=== PATIENT | female | born 1955 | race Caucasian/White ===

== ENCOUNTER → 2018-03-08 13:42 | Outpatient (CLI) | payer OTHER, SELFPAY ==
--- NOTE | 2018-03-08 | DI.MG.S_ITS ---
BILATERAL DIGITAL SCREENING MAMMOGRAM 3D/2D WITH CAD: 03/08/2018 CLINICAL: Routine screening. Baseline exam. No prior exams were available for comparison. There are scattered fibroglandular elements in both breasts. Current study was also evaluated with a Computer Aided Detection (CAD) system. No significant masses, calcifications, or other findings are seen in either breast. IMPRESSION: NEGATIVE There is no mammographic evidence of malignancy. A 1 year screening mammogram is recommended. This exam was interpreted at Station ID: [id number]. NOTE: For mammograms, a report in lay terms will be sent to the patient. Approximately 15% of breast malignancies will not be visualized mammographically. In the management of a palpable breast mass, a negative mammogram must not discourage biopsy of a clinically suspicious lesion. Electronically Signed By: Ron hodgson/madan:03/08/2018 16:20:12 letter sent: Normal Exam ACR BI-RADS Category 1: Negative [id number]
== END ==
PROVIDERS: Family Provider Internal Medicine; PCP Internal Medicine; Visit Provider Internal Medicine
DX: Z12.31 Encounter for screening mammogram for malignant neoplasm of breast (principal)
CPT/HCPCS: 77063; 77067

== ENCOUNTER → 2018-05-05 13:49 | Outpatient (CLI) | payer OTHER, SELFPAY ==
--- NOTE | 2018-05-05 | DI.CT.S_ITS ---
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 7 mm thick coronal and sagittal MIP reformats were then acquired. For radiation dose reduction, the following was used: automated exposure control, adjustment of mA and/or kV according to patient size. COMPARISON: [facility], [place], PET/CT WHOLE BODY EXTENDED, 12/30/2017, 14:40. [facility], [place], KIDNEY/ URETER/BLADDER, 11/23/2017, 9:09. [facility], [place], CHEST 2 VIEW, 12/09/2012, 14:37. FINDINGS: Image quality: Excellent. Lungs and pleura: No acute air space opacities. No pleural effusions or pneumothorax. Central and peripheral airways are patent and normal in caliber. The previously identified medial right lower lobe nodule measuring 15 mm AP by 13 mm transverse is unchanged. No new nodules are identified. Mediastinum: Heart size is normal. No pericardial effusion. No mediastinal adenopathy by size criteria. Thoracic aorta and central pulmonary arteries are normal in size. Esophagus is normal in caliber. No hiatal hernia. Bones and chest wall: No suspicious bony lesions. No vertebral body compression fractures. No axillary or supraclavicular adenopathy by size criteria. Thyroid gland is unremarkable. Abdomen: Visualized upper abdominal solid organs and bowel loops appear normal in the absence of contrast. IMPRESSION: 1. Unchanged appearance of 1.5 cm AP by 1.3 cm transverse the medial right lower lobe nodule. Initial visualization was on 11/23/17. It is noted to have low FDG uptake on recent PET scan. Recommend interval followup as below based on size and initial visualization. Fleischner Society criteria for SOLID lung nodule followup. Nodule size (mm)Low-risk patientHigh-risk patient<6 (single or multiple)No routine followup.Optional CT at 12 months. 6-8 (single or multiple)CT at 6-12 months, then optional CT at 18-24 mo.CT at 6-12 months, then CT at 18-24 months. >8 (single)CT, PET-CT, or biopsy at 3 months. Same as for low-risk pts. >8 (multiple)CT at 3-6 months, then optional CT at 18-24 mo.CT at 3-6 months, then CT at 18-24 months. Recommendations do not apply to lung cancer screening, patients with immunosuppression, or patients with known primary cancer. Dictated by: Lori Garcia M.D. on 05/05/2018 at 16:46 Approved by: Lori Garcia M.D. on 05/05/2018 at 16:52
== END ==
PROVIDERS: Family Provider Internal Medicine; PCP Internal Medicine; Visit Provider Internal Medicine
DX: D38.1 Neoplasm of uncertain behavior of trachea, bronchus and lung (principal)
CPT/HCPCS: 71250

== ENCOUNTER → 2018-10-15 12:36 | Outpatient (CLI) | payer OTHER, SELFPAY ==
--- NOTE | 2018-10-15 | DI.CT.S_ITS ---
PROCEDURE: CT CHEST WO CON INDICATIONS: KNOWN PULMONARY NODULE TECHNIQUE: Noncontrast 2.0-2.5 mm thick sections acquired from the pulmonary apices to the posterior costophrenic angles. 7 mm thick coronal and sagittal MIP reformats were then acquired. A low radiation dose technique was utilized. COMPARISON: [facility], CT, CT CHEST WO CON, 05/05/2018, 14:38. FINDINGS: Image quality: Diagnostic, given the low radiation dose technique. Lungs and pleura: Patient's known 15 x 13 mm oval soft tissue density nodule involving medial aspect of right lower lobe remains unchanged in size and appearance series 3 image 98. No new pulmonary nodule or mass is identified. There is no pleural effusion or pneumothorax. Central and peripheral airways are patent and normal in caliber. Mediastinum: Heart size is normal. No pericardial effusion. No mediastinal adenopathy by size criteria. Thoracic aorta and central pulmonary arteries are normal in size. Esophagus is normal in caliber. No hiatal hernia. Bones and chest wall: No suspicious bony lesions. No vertebral body compression fractures. No axillary or supraclavicular adenopathy by size criteria. Thyroid gland is within normal limits. Abdomen: Visualized upper abdomen solid organs and bowel loops appear normal in the absence of contrast. IMPRESSION: 1. Stable 15 x 13 mm medial right lower lobe nodule unchanged dating back to 11/23/[address] followup in 12 months is recommended. 2. No new pulmonary nodular masses seen. No mediastinal or hilar adenopathy. Fleischner Society criteria for SOLID lung nodule followup. Nodule size (mm)Low-risk patientHigh-risk patient<6 (single or multiple)No routine followup.Optional CT at 12 months. 6-8 (single or multiple)CT at 6-12 months, then optional CT at 18-24 mo.CT at 6-12 months, then CT at 18-24 months. >8 (single)CT at 3 months, PET-CT, or biopsy. Same as for low-risk pts. >8 (multiple)CT at 3-6 months, then optional CT at 18-24 mo.CT at 3-6 months, then CT at 18-24 months. Recommendations do not apply to lung cancer screening, patients with immunosuppression, or patients with known primary cancer. Dictated by: Marbin Harris M.D. on 10/15/2018 at 15:41 Approved by: Marbin Harris M.D. on 10/15/2018 at 15:44
== END ==
PROVIDERS: PCP Internal Medicine; Visit Provider Internal Medicine
DX: R91.1 Solitary pulmonary nodule (principal)
CPT/HCPCS: 71250

== ENCOUNTER 2018-12-10 18:09 | Emergency (ER) | payer OTHER, SELFPAY ==
[2018-12-10 18:36] VITALS: BP 132/83; PULSE 95; RESP 19; TEMP 37; O2SAT 98
--- NOTE | 2018-12-10 18:40 | DI.RAD.S_ITS ---
PROCEDURE: XR TIBIA FIBULA RT 2V INDICATIONS: Dog bite TECHNIQUE: 2 views of the tibia and fibula were acquired. COMPARISON: None. FINDINGS: Bones: No fractures or dislocations. No suspicious bony lesions. No evidence of osteomyelitis. No soft tissue gas. Soft tissues: No suspicious soft tissue calcifications or masses. IMPRESSION: Negative right tibia fibula Dictated by: Juan Pacheco M.D. on 12/10/2018 at 21:17 Approved by: Juan Pacheco M.D. on 12/10/2018 at 21:18
[2018-12-10] MEDS: TET,DIPH,PERTUSS(ACELL),VAC/PF 0.5 ML SYRINGE IM (21:17)
--- NOTE | 2018-12-10 21:29 | ED.ANIMALBIT ---
HPI - Animal Bite <Sarah Miles PA-C - Last Filed: 12/10/18 22:33> General Chief Complaint: Animal Bite Stated Complaint: DOG BITE ON LEFT CALF Time Seen by Provider: 12/10/18 20:38 Source: patient Mode of arrival: ambulatory Limitations: no limitations History of Present Illness HPI narrative: This 63-year-old female was bit earlier on the left calf by her neighbor's dog this afternoon. She states she was walking up the driveway towards her house and the dog ran up and bit her. The neighbors came and got it and she was able to walk in to the house. No other bites were sustained. They reported is up to date on vaccines, it is a very old dog and they thought it may have been frightened. She states that the calf was quite sore with cleaning it out and it is somewhat painful. She typically takes naproxen at home for pain with good results. She has not had a recent tetanus vaccine. She denies any other complaints on systems review today. Related Data Previous Rx's Medication Instructions Recorded amoxicillin-pot clavulanate 1 tab PO Q12H #14 tab 12/10/18 Allergies Allergy/AdvReac Type Severity Reaction Status Date / Time codeine Allergy Verified 12/10/18 21:46 Review of Systems <JAZZY Cerda Last Filed: 12/10/18 22:33> Review of Systems ROS Unobtainable: All systems reviewed & are unremarkable except as noted in HPI and below PFSH <JAZZY Cerda Last Filed: 12/10/18 22:33> Medical History Fibromyalgia (Chronic) Lung mass (Chronic) No pertinent family history (Chronic) Ventricular tachycardia (Chronic) Surgical History No pertinent past surgical history (Chronic) Comment: Never smoker Exam <JAZZY Cerda Last Filed: 12/10/18 22:33> Narrative Exam Narrative: GENERAL APPEARANCE: Patient sitting comfortably, in no distress. LUNGS: Clear to auscultation bilaterally. HEART: Rate and rhythm regular without murmur, normal S1 and S2, no S3 or S4. DERMATOLOGIC: Left medial calf there are 2 puncture wounds 6-7 mm deep, mildly tender, not actively bleeding. Surrounding this there is ecchymoses and hematoma, also mildly tender. No other wound or erythema MUSCULOSKELETAL: Normal range of motion at the left knee and ankle NEUROVASCULAR: Left foot is warm and pink, sensation grossly intact over the left lower extremity Initial Vital Signs Initial Vital Signs: Vital Signs Temperature 98.6 F 12/10/18 18:36 Pulse Rate 95 H 12/10/18 18:36 Respiratory Rate 19 12/10/18 18:36 Blood Pressure 132/83 12/10/18 18:36 Pulse Oximetry 98 12/10/18 18:36 <DO Yarelis Miller Last Filed: 12/10/18 22:58> Initial Vital Signs Initial Vital Signs: Vital Signs Temperature 98.6 F 12/10/18 18:36 Pulse Rate 95 H 12/10/18 18:36 Respiratory Rate 12/10/18 18:36 Blood Pressure 132/83 12/10/18 18:36 Pulse Oximetry 98 12/10/18 18:36 Course <Sarah Miles PA-C - Last Filed: 12/10/18 22:33> Orders Ordered: ED Orders 12/10/18 18:40 XR tibia fibula LT 2V Stat Discontinued Medications Hydrocodone Bitart/Acetaminophen (Vicodin Prepack) 1 bottle MISC SEEINSTR ONE Stop: 12/10/18 21:42 Last Admin: 12/10/18 22:27 Dose: 1 bottle Amoxicillin/Clavulanate Potassium (Augmentin 875-125 Mg) 1 tab PO NOW ONE Stop: 12/10/18 21:31 Last Admin: 12/10/18 21:45 Dose: 1 tab Diphtheria/Tetanus/Acell Pertussis (Adacel) 0.5 ml IM .ONCE ONE Stop: 12/10/18 18:43 Last Admin: 12/10/18 21:17 Dose: 0.5 ml Vital Signs - 8 hr 12/10/18 18:36 12/10/18 22:30 Temperature 98.6 F Pulse Rate 95 H 85 Respiratory Rate 19 15 Blood Pressure 115/78 Blood Pressure [Left Arm] 132/83 Pulse Oximetry 98 98 <DO Yarelis Miller Last Filed: 12/10/18 22:58> Orders Ordered: ED Orders 12/10/18 18:40 XR tibia fibula LT 2V Stat Discontinued Medications Hydrocodone Bitart/Acetaminophen (Vicodin Prepack) 1 bottle MISC SEEINSTR ONE Stop: 12/10/18 21:42 Last Admin: 12/10/18 22:27 Dose: 1 bottle Amoxicillin/Clavulanate Potassium (Augmentin 875-125 Mg) 1 tab PO NOW ONE Stop: 12/10/18 21:31 Last Admin: 12/10/18 21:45 Dose: 1 tab Diphtheria/Tetanus/Acell Pertussis (Adacel) 0.5 ml IM .ONCE ONE Stop: 12/10/18 18:43 Last Admin: 12/10/18 21:17 Dose: 0.5 ml Vital Signs - 8 hr 12/10/18 18:36 12/10/18 22:30 Temperature 98.6 F Pulse Rate 95 H 85 Respiratory Rate 19 15 Blood Pressure 115/78 Blood Pressure [Left Arm] 132/83 Pulse Oximetry 98 98 MDM - Animal Bite <Sarah Miles PA-C - Last Filed: 12/10/18 22:33> Imaging Data tib/fib: Radiologist's impression: 30 Sarah Miles PA-C Find Patient Imaging Adela Prasad 63 F 1955 ACTIVITY DATE EXAM STATUS AUTHOR 12/10/18 18:40 [place] [address] XRay Report Signed Patient: Adela Prasad DMR#: [id number] : 1955cct:[id number] Age/Sex: 63 / FDate of Service: 12/10/18 Loc: ED Accession Number: [id number] Procedure: XR tibia fibula LT 2V Ordering Provider: Sekou Ross D.O. PROCEDURE: XR TIBIA FIBULA RT 2V INDICATIONS: Dog bite TECHNIQUE: 2 views of the tibia and fibula were acquired. COMPARISON: None. FINDINGS: Bones: No fractures or dislocations. No suspicious bony lesions. No evidence of osteomyelitis. No soft tissue gas. Soft tissues: No suspicious soft tissue calcifications or masses. IMPRESSION: Negative right tibia fibula Dictated by: Juan Pacheco M.D. on 12/10/2018 at 21:17 Approved by: Juan Pacheco M.D. on 12/10/2018 at 21:18 Discharge Plan Departure Patient Disposition: Home Clinical Impression: Dog bite Qualifiers: Encounter type: initial encounter Qualified Code(s): W54.0XXA - Bitten by dog, initial encounter Discharge Date/Time: 12/10/18 22:26 Interventions: ED Discharge Assessment Last Done: 12/10/18 22:30 Instructions: DI for Dog Bite Activity Restrictions/Additional Instructions: Please take 2 tablets of your Aleve when you get home, and you can continue that every 12 hr to help with pain and inflammation. I have given you a few tablets of Hallock (hydrocodone/acetaminophen) and you can take 1 every 6 hr if needed in addition to this for the next day or so for acute pain. Remember that may make you sleepy and not to drive. Please monitor for any signs of acutely worsening infection such as rapidly spreading warm redness, streaking, draining pus, severe pain or fever. You should return here or see your PCP right away if any. I think that you will have pain and tenderness around this area due to the internal and external bruising and pressure on the soft tissues, but your x-ray did not show any problem today. We have updated your tetanus vaccine and started you on Augmentin to help prevent infection. It may help to keep the pressure dressing over the wound. You may wish to report this to animal Control to ensure your neighbor's dog is up-to-date on vaccines. Please see your PCP in a few days for recheck We greatly appreciate your patience with our busy emergency department today Prescriptions: New amoxicillin-pot clavulanate 875-125 mg tablet 1 tab PO Q12H Qty: 14 RF: 0 Referrals: Joseph Colorado MD [Primary Care Provider] - <Sekou Ross DO - Last Filed: 12/10/18 22:58> [facility] Attestation: I was available for consultation during this patient's emergency department encounter
[2018-12-10] MEDS: AMOXICILLIN/CLAV 875/125 MG 1 TAB PO (21:45)
[2018-12-10] MEDS: HYDROCODONE/ACET 5/325 PREPACK 1 BOTTLE MISC (22:27)
[2018-12-10 22:30] VITALS: BP 115/78; PULSE 85; RESP 15; O2SAT 98
== END 2018-12-10 22:26 | disposition home or self-care (01) ==
PROVIDERS: Emergency Provider Internal Medicine; PCP Internal Medicine
DX: S81.852A Open bite, left lower leg, initial encounter (principal); W54.0XXA Bitten by dog, initial encounter; Z23 Encounter for immunization
CPT/HCPCS: 73590; 90471; 99282; 99283; 90715

== ENCOUNTER → 2019-02-26 15:40 | Outpatient (ROUT) | payer OTHER, SELFPAY ==
[2019-02-26 15:46] LABS: Bacteria Urine None Seen
[2019-02-26 15:48] LABS: Appearance Urine UA CLEAR; Bilirubin Urine UA NEGATIVE (NEGATIVE); Color Urine UA YELLOW; Glucose Urine UA NEGATIVE (Negative); Ketones Urine UA NEGATIVE (NEGATIVE); Leukocyte Esterase Urine UA 3+ (NEGATIVE); Nitrite Urine UA NEGATIVE (Negative); Occult Blood Urine UA 3+ (Negative); Protein Urine UA NEGATIVE (Negative); Specific Gravity Urine UA <=1.005 (1.000-1.035); Urobilinogen Urine UA 0.2 E.U./dL (0.2)
[2019-02-26 16:06] LABS: Culture Indicated Urine Specimen Cultured; RBC Urine 10-30/HPF (0-5/HPF); WBC Urine 10-30/HPF (0-5/HPF)
== END ==
PROVIDERS: PCP Internal Medicine; Visit Provider Internal Medicine
DX: N39.0 Urinary tract infection, site not specified (principal)
CPT/HCPCS: 81001; 87077; 87086; 87186

== ENCOUNTER 2019-06-13 21:18 | Emergency (ER) | payer OTHER, SELFPAY ==
[2019-06-13 21:26] VITALS: BP 152/87; PULSE 105; RESP 22; TEMP 37; O2SAT 98
--- NOTE | 2019-06-13 21:28 | DI.RAD.S_ITS ---
PROCEDURE: XR FOOT RT MIN 3V INDICATIONS: lateral foot pain, twisting injury TECHNIQUE: 3 views of the foot were acquired. COMPARISON: [facility], , FOOT 3V RIGHT, 09/17/2015, 15:56. FINDINGS: Bones: No acute fractures or dislocations. There is a moderate hallux valgus deformity with moderate to severe degeneration of the 1st metatarsophalangeal joint demonstrated. There is cortical irregularity in the 2nd metatarsal consistent with an old fracture again noted. No suspicious bony lesions. Soft tissues: There is soft tissue swelling medial to the 1st metatarsal head. There is also mild periarticular soft tissue swelling at the 5th metatarsophalangeal joint. IMPRESSION: 1. No acute fracture or dislocation. 2. Moderate hallux valgus with moderate to severe degeneration of the 1st metatarsophalangeal joint. Dictated by: Anthony Montes M.D. on 06/13/2019 at 22:24 Approved by: Anthony Montes M.D. on 06/13/2019 at 22:26
--- NOTE | 2019-06-13 23:20 | ED_ITS ---
HPI - Extremity Injury (Lower) General Chief Complaint: Extremity Injury, Lower Stated Complaint: r foot pain, possible break Time Seen by Provider: 06/13/19 23:20 Source: patient Mode of arrival: ambulatory Limitations: no limitations History of Present Illness HPI Narrative: This is a 63-year-old female comes to the emergency department with complaint of pain in her right foot. Patient states that she stepped down on a rock step and it sort of day where there was a hole and she rolled her foot laterally. Patient is complaining of pain over the 5th metatarsal region. She has not appreciated any significant bruising. She also notes that there isn't a sore on the bottom of her great toe that has been there several weeks and has been improving very very slowly. She states there has been a little bit of surrounding redness that has not gone away she states that she had callus that she used a pumice stone on, she developed a crack in her toe and it has not healed. She denies any other injuries from the injury to her foot. She denies any numbness or tingling. She did try some Aleve earlier today. Related Data Previous Rx's Medication Instructions Recorded amoxicillin-pot clavulanate 1 tab PO Q12H #14 tab 12/10/18 Allergies Allergy/AdvReac Type Severity Reaction Status Date / Time codeine Allergy Verified 12/10/18 21:46 Review of Systems Review of Systems ROS Unobtainable: All systems reviewed & are unremarkable except as noted in HPI and below Constitutional Constitutional: Denies chills, Denies fever(s) and Denies weakness Musculoskeletal Musculoskeletal: Reports as per HPI, Denies abnormal gait, Reports limited range of motion, Denies numbness and Denies tingling Integumentary/Breasts Skin/Breast: Reports non-healing lesions and Reports erythema Neurologic Neurologic: Denies abnormal gait, Denies focal weakness, Denies numbness, Denies sensory deficit, Denies tingling and Denies weakness [facility] Medical History Fibromyalgia (Chronic) Lung mass (Chronic) No pertinent family history (Chronic) Ventricular tachycardia (Chronic) Surgical History No pertinent past surgical history (Chronic) Exam Narrative Exam Narrative: GENERAL: Alert and oriented x three, well-nourished, well- appearing female HEENT: Head normocephalic, atraumatic, EOMI, pupils reactive, face symmetric, moist mucous membranes NECK: Supple, full range of motion CARDIOVASCULAR: Regular rate and rhythm without murmurs, rubs or gallops. RESPIRATORY: Breath sounds equal bilaterally, no wheezes rales or rhonchi. ABDOMEN: Soft, nontender. Normoactive bowel sounds all 4 quadrants. No guarding or rebound, rigidity, no mass EXTREMITIES: Normal range of motion, no clubbing or edema. Neurovascularly intact. Patient has mild tenderness over the 5th metatarsal, no ecchymosis is noted. Patient has a over the bottom of the great toe on the left foot. It appears clean dry without any drainage. She appears to be scabbed over. There is some slight erythema along the edges but no drainage. The area is only very mildly tender to touch. Patient has 2+ dorsalis pedis with cap refill less than 2 seconds in all 5 toes. NEUROLOGICAL: Cranial nerves II through XII grossly intact. Moving all extremities SKIN: Warm, dry, no petechiae, no rashes or lesions other than noted above Initial Vital Signs Initial Vital Signs: Vital Signs Temperature 98.6 F 06/13/19 21:26 Pulse Rate 105 H 06/13/19 21:26 Respiratory Rate 22 06/13/19 21:26 Blood Pressure 152/87 H 06/13/19 21:26 Pulse Oximetry 98 06/13/19 21:26 Course Orders Ordered: ED Orders 06/13/19 21:28 XR foot RT min 3V Stat Vital Signs Vital signs: Vital Signs - 8 hr 06/13/19 21:26 Temperature 98.6 F Pulse Rate 105 H Respiratory Rate 22 Blood Pressure 152/87 H Pulse Oximetry 98 MDM - Extremity Injury (Lower) Imaging Data right foot xray: Radiologist's impression: Adela Prasad 63 F [address] [address] XRay Report Signed Patient: ShaniceAdela [facility]#: [id number] : [id number]:[id number] Age/Sex: 63 / FDate of Service: 06/13/19 Loc: ED Accession Number: [id number] Procedure: XR foot RT min 3V Ordering Provider: Laurita Tsang D.O. PROCEDURE: XR FOOT RT MIN 3V INDICATIONS: lateral foot pain, twisting injury TECHNIQUE: 3 views of the foot were acquired. COMPARISON: [facility], , FOOT 3V RIGHT, 09/17/2015, 15:56. FINDINGS: Bones: No acute fractures or dislocations. There is a moderate hallux valgus deformity with moderate to severe degeneration of the 1st metatarsophalangeal joint demonstrated. There is cortical irregularity in the 2nd metatarsal consistent with an old fracture again noted. No suspicious bony lesions. Soft tissues: There is soft tissue swelling medial to the 1st metatarsal head. There is also mild periarticular soft tissue swelling at the 5th metatarsophalangeal joint. IMPRESSION: 1. No acute fracture or dislocation. 2. Moderate hallux valgus with moderate to severe degeneration of the 1st metatarsophalangeal joint. Dictated by: Anthony Montes M.D. on 06/13/2019 at 22:24 Approved by: Anthony Montes M.D. on 06/13/2019 at 22:26 [facility] Narrative Medical decision making narrative: Imaging was reviewed with patient, she has very mild tenderness on palpation my suspicion for occult fracture is low. Patient was offered ortho shoe, she prefers to avoid crutches. We also discussed for her to keep a close eye on her toe keep it clean and dry and follow up with her primary care. He continues to stay open she may need follow- up with wound care although it does not look infected at this time we did discuss signs and symptoms to watch for and reasons to return emergently Discharge Plan Departure Patient Disposition: Home Clinical Impression: Right foot strain, Open wound of toe Discharge Date/Time: 06/14/19 00:12 Instructions: Muscle Strain Activity Restrictions/Additional Instructions: Follow-up with your primary care provider this week for recheck and possibly for referral to wound care if your toe is not continuing to heal. You may take Tylenol 1000 mg every 8 hours as needed for pain. You may use heat and/or ice to the affected area as needed. Splint Care: Keep splint clean and dry. Elevated affected body part to decrease swelling. OK to use ice pack on the affected body part. Use for 15-20 minutes each time, for 5-6x per day. If you develop worsening pain, numbness, tingling, discoloration of the affected body part, loosen the splint by loosening the BETY wrap, and either see your doctor for an urgent re-assessment, or return to the Emergency Department. Return to the Emergency Department for any new or worsening symptoms. Prescriptions: No Action amoxicillin-pot clavulanate 875-125 mg tablet 1 tab PO Q12H Qty: 14 RF: 0 Referrals: Joseph Colorado MD [Primary Care Provider] -
== END 2019-06-14 00:12 | disposition home or self-care (01) ==
PROVIDERS: Emergency Provider Emergency Medicine; PCP Internal Medicine
DX: S96.911A Strain of unspecified muscle and tendon at ankle and foot level, right foot, initial encounter (principal); S91.109A Unspecified open wound of unspecified toe(s) without damage to nail, initial encounter
CPT/HCPCS: 73630; 99282; 99283

== ENCOUNTER → 2019-08-17 13:24 | Outpatient (CLI) | payer OTHER, SELFPAY ==
[2019-08-17 13:56] LABS: Add Manual Diff / Slide Review NO; Basophils Absolute Auto 0 /uL (0-100); Basophils Percent Auto 0.7 % (0-2); Eosinophils Absolute Auto 100 /uL (0-450); Eosinophils Percent Auto 2.1 % (2-4); Hematocrit 41.1 % (36-46); Lymphocytes Absolute Auto 1500 /uL (1100-4500); Lymphocytes Percent Auto 24.4 % (25-40); Mean Corpuscular HGB Conc 34.2 % (30-36); Mean Corpuscular Hemoglobin 29.6 PG (26-34); Mean Corpuscular Volume 86.7 fL (80-100); Monocytes Absolute Auto 400 /uL (0-900); Monocytes Percent Auto 6.3 % (3-14); Neutrophils Absolute Auto 4000 /uL (1500-7000); Neutrophils Percent Auto 66.5 % (50-75); Platelet Count 264 X10^3/uL (150-400); Red Blood Cell Count 4.74 X10^6/uL (4.0-5.2); Red Cell Distribution Width 14.2 % (11.6-14.8); White Blood Cell Count 6.1 X10^3/uL (4.5-11.0)
[2019-08-17 14:32] LABS: Alanine Aminotransferase 20 IU/L (<35); Albumin 4.5 g/dL (3.5-5.0); Alkaline Phosphatase 118 U/L (38-126); Aspartate Aminotransferase 22 IU/L (14-36); BUN Creatinine Ratio 17.8 (6-22); Bilirubin Total 0.7 mg/dL (0.2-1.3); Blood Urea Nitrogen 16 mg/dL (7-17); Calcium 9.3 mg/dL (8.4-10.2); Carbon Dioxide 28 mmol/L (22-32); Chloride 104 mmol/L (98-107); Estimated Glomerular Filt Rate > 60.0 mL/min (>60); Globulin 2.3 g/dL (1.7-4.1); Glucose 93 mg/dL (80-110); HEMOLYSIS < 15 (0-50); Potassium 3.9 mmol/L (3.4-5.1); Sodium 141 mmol/L (137-145); Total Protein 6.8 g/dL (6.3-8.2)
[2019-08-17 14:47] LABS: Free T4, Direct Thyroxine 0.95 ng/dL (0.78-2.19)
[2019-08-17 15:01] LABS: Thyroid Stimulating Hormone 2.34 uIU/mL (0.47-4.68)
[2019-08-17 15:02] LABS: Cortisol Random 7.34 ug/dL
== END ==
PROVIDERS: PCP Internal Medicine; Visit Provider Internal Medicine Cardiovascular Disease
DX: R00.0 Tachycardia, unspecified (principal); I47.2 Ventricular tachycardia; R53.82 Chronic fatigue, unspecified
CPT/HCPCS: 36415; 80053; 82533; 84439; 84443; 85025

== ENCOUNTER → 2019-12-14 10:03 | Outpatient (CLI) | payer OTHER, SELFPAY ==
--- NOTE | 2019-12-14 10:09 | DI.CT.S_ITS ---
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 7 mm thick axial MIP and 5 mm coronal and sagittal reformats were then acquired. A low radiation dose technique was utilized. COMPARISON: [facility], CT, CT CHEST WO CON, 05/05/2018, 14:38. [facility], CR, CHEST 2 VIEW, 12/09/2012, 14:37. [facility], CT, KIDNEY/ URETER/BLADDER, 11/23/2017, 9:09. [facility], CT, CT CHEST WO CON, 10/15/2018, 12:47. FINDINGS: Image quality: Diagnostic, given the low radiation dose technique. Lungs and pleura: 1.6 x 1.1 cm nodule seen in the medial right lower lobe is unchanged dating back to 11/23/17 (1.6 x 1.1 cm). 1 mm nodule seen in the posterior right upper lobe on image 67/3 is unchanged since 2018. 2 mm nodule seen in the anterior left upper lobe on image 95/3 is unchanged. Mediastinum: Heart size is normal. Coronary artery calcifications are present. No pericardial effusion. No mediastinal adenopathy by size criteria. Thoracic aorta and central pulmonary arteries are normal in size. Esophagus is normal in caliber. No hiatal hernia. Bones and chest wall: No suspicious bony lesions. No vertebral body compression fractures. No axillary or supraclavicular adenopathy by size criteria. Thyroid gland negative. Abdomen: Visualized upper abdomen solid organs and bowel loops appear normal in the absence of contrast. IMPRESSION: Overall, grossly stable examination including dominant 1.6 solid nodule in the medial right lower lobe dating back to 11/23/17. Fleischner Society criteria for SOLID lung nodule followup. Nodule size (mm)Low-risk patientHigh-risk patient<6 (single or multiple)No routine followup.Optional CT at 12 months. 6-8 (single or multiple)CT at 6-12 months, then optional CT at 18-24 mo.CT at 6-12 months, then CT at 18-24 months. >8 (single)CT at 3 months, PET-CT, or biopsy. Same as for low-risk pts. >8 (multiple)CT at 3-6 months, then optional CT at 18-24 mo.CT at 3-6 months, then CT at 18-24 months. Fleischner Society criteria for SUB-SOLID lung nodule followup. Solitary pure ground-glass nodules<6 mm (ground glass or part solid)No followup needed. 6 mm or larger (ground glass)CT at 6-12 months to confirm persistence, then CT every 2 years until 5 years.6 mm or larger (part solid)CT at 3-6 months to confirm persistence, then annual CT until 5 years if unchanged and solid component remains <6 mm. Multiple sub-solid nodules<6 mmCT at 3-6 months, then CT consider at 2 & 4 years for high risk patients. [address] at 3-6 months. Subsequent management based on most suspicious lesions. Recommendations do not apply to lung cancer screening, patients with immunosuppression, or patients with known primary cancer. Dictated by: Salomon Ford M.D. on 12/14/2019 at 12:37 Approved by: Salomon Ford M.D. on 12/14/2019 at 12:44
== END ==
PROVIDERS: PCP Internal Medicine; Referring Provider Internal Medicine; Visit Provider Internal Medicine
DX: D38.1 Neoplasm of uncertain behavior of trachea, bronchus and lung (principal); R91.8 Other nonspecific abnormal finding of lung field; I25.10 Atherosclerotic heart disease of native coronary artery without angina pectoris
CPT/HCPCS: 71250

== ENCOUNTER → 2020-08-29 14:18 | Outpatient (ROUT) | payer OTHER, SELFPAY ==
[2020-08-29 14:21] LABS: Culture Indicated Urine Cult Not Indicated
== END ==
PROVIDERS: PCP Internal Medicine; Visit Provider Internal Medicine
DX: R39.9 Unspecified symptoms and signs involving the genitourinary system (principal)
CPT/HCPCS: 81001; 87086

== ENCOUNTER → 2020-11-01 12:53 | Outpatient (CLI) | payer OTHER, SELFPAY ==
[2020-11-10 04:16] LABS: 5-HIAA, UR 24HR 6.2 mg/24 hr (0.0-14.9); 5-HIAA, Urine 2.7 mg/L (Undefined)
== END ==
PROVIDERS: PCP Internal Medicine; Referring Provider Internal Medicine Cardiovascular Disease; Visit Provider Internal Medicine Cardiovascular Disease
DX: I47.2 Ventricular tachycardia (principal); R23.2 Flushing
CPT/HCPCS: 83497

== ENCOUNTER → 2021-01-24 14:30 | Outpatient (ROUT) | payer OTHER, SELFPAY ==
[2021-01-24 15:12] LABS: Add Manual Diff / Slide Review NO; Basophils Absolute Auto 0 /uL (0-100); Basophils Percent Auto 0.8 % (0-2); Eosinophils Absolute Auto 100 /uL (0-450); Eosinophils Percent Auto 1.8 % (2-4); Hematocrit 39.1 % (36-46); Hemoglobin 13.2 g/dL (12.0-16.0); Lymphocytes Absolute Auto 1300 /uL (1100-4500); Lymphocytes Percent Auto 28.5 % (25-40); Mean Corpuscular HGB Conc 33.8 % (30-36); Mean Corpuscular Hemoglobin 29.2 PG (26-34); Mean Corpuscular Volume 86.5 fL (80-100); Monocytes Absolute Auto 300 /uL (0-900); Monocytes Percent Auto 7.5 % (3-14); Neutrophils Absolute Auto 2700 /uL (1500-7000); Neutrophils Percent Auto 61.4 % (50-75); Platelet Count 253 X10^3/uL (150-400); Red Blood Cell Count 4.52 X10^6/uL (4.0-5.2); Red Cell Distribution Width 13.9 % (11.6-14.8); White Blood Cell Count 4.5 X10^3/uL (4.5-11.0)
[2021-01-24 15:19] LABS: Alanine Aminotransferase 18 IU/L (<35); Albumin 4.1 g/dL (3.5-5.0); Albumin Globulin Ratio 1.7 (1.0-2.8); Alkaline Phosphatase 105 U/L (38-126); Aspartate Aminotransferase 22 IU/L (14-36); BUN Creatinine Ratio 14.6 (6-22); Bilirubin Total 0.7 mg/dL (0.2-1.3); Blood Urea Nitrogen 12 mg/dL (7-17); C-Reactive Protein Quant < 0.5 mg/dL (<1.0); Calcium 9.4 mg/dL (8.4-10.2); Carbon Dioxide 27 mmol/L (22-32); Chloride 106 mmol/L (98-107); Cholesterol 201 mg/dL (140-199); Estimated Glomerular Filt Rate > 60.0 mL/min (>60); Globulin 2.4 g/dL (1.7-4.1); Glucose 90 mg/dL (80-110); HDL Cholesterol 82 mg/dL (40-60); HEMOLYSIS < 15 (0-50); LDL Cholesterol Calculated 104 mg/dL (<100); Potassium 4.4 mmol/L (3.4-5.1); Sodium 139 mmol/L (137-145); Total Protein 6.5 g/dL (6.3-8.2); Triglycerides 75 mg/dL (35-150)
[2021-01-24 15:27] LABS: Erythrocyte Sedimentation Rate 4 MM/HR (0-20)
[2021-01-24 15:48] LABS: TSH w/ Reflex to FT4 2.72 uIU/mL (0.47-4.68)
[2021-01-25 06:32] LABS: Thyroid Peroxidase Antibodies <9 IU/mL (0-34)
== END ==
PROVIDERS: PCP Internal Medicine; Visit Provider Internal Medicine
DX: Z00.00 Encounter for general adult medical examination without abnormal findings (principal); M35.3 Polymyalgia rheumatica; E03.9 Hypothyroidism, unspecified
CPT/HCPCS: 80053; 80061; 84443; 85025; 85651; 86140; 86376

== ENCOUNTER 2021-04-26 07:52 | Emergency (ER) | payer OTHER, SELFPAY ==
[2021-04-26] VITALS (9 sets, daily range): BP systolic 127–163; BP diastolic 70–86; PULSE 78–90; RESP 18–31; TEMP 36.8; O2SAT 96–98; BMI 28.4
--- NOTE | 2021-04-26 10:38 | ED_ITS ---
HPI - SOB/Dyspnea General Chief Complaint: Fever Stated Complaint: covid positive, not doing great Time Seen by Provider: 04/26/21 08:39 Source: patient Mode of arrival: Ambulatory History of Present Illness HPI Narrative: Patient is a 65-year-old female who has history of fibromyalgia presenting with known COVID positive. She states that she overall is feeling weak and lethargic she states that she has been using her home pulse oximeter and had 1 reading of low oxygen. However it went back up. was admitted to the hospital yesterday with COVID on oxygen. She just worried she might be D compensating. Overall appears well with O2 sat of 98% in room. Related Data Previous Rx's Medication Instructions Recorded amoxicillin 875 mg-potassium 1 tab PO Q12H #14 tab 12/10/18 clavulanate 125 mg tablet Allergies Allergy/AdvReac Type Severity Reaction Status Date / Time codeine Allergy Verified 04/26/21 08:22 Review of Systems Review of Systems Narrative: GENERAL: Denies chills, fatigue, malaise, fever, sweats, travel HEENT: Denies sinus pain, ear pain, sore throat, difficulty swallowing, neck pain RESPIRATORY: See HPI CARDIOVASCULAR: Denies chest pain, palpitations, orthopnea, edema GASTROINTESTINAL: Denies nausea, vomiting, abdominal pain, diarrhea, constipation, melena. : Denies dysuria, frequency, incontinence, hematuria, urinary retention, flank pain. MUSCULOSKELETAL: Denies weakness, joint pain, or bony pain SKIN: No rash, no erythema, no pruritus NEUROLOGIC: Denies weakness, dizziness, headache, numbness, change in speech, confusion PSYCHIATRIC: No concerning psychosocial issues. 12 point review of systems is negative except for those stated above and HPI Patient History Medical History (Updated 04/26/21 @ 11:26 by Shea Chase DO) Fibromyalgia Lung mass No pertinent family history Ventricular tachycardia Surgical History No pertinent past surgical history Social History Smoking Status: Never smoker Smoking Status: Never smoker alcohol intake frequency: 0-2 drinks per day Substance Use Type: does not use Exam Initial Vital Signs Initial Vital Signs: Vital Signs Temperature 98.3 F 04/26/21 08:10 Pulse Rate 90 04/26/21 08:10 Respiratory Rate 18 04/26/21 08:10 Blood Pressure 163/86 H 04/26/21 08:10 Pulse Oximetry 98 04/26/21 08:10 GENERAL: Alert well-appearing 65-year-old female HEENT: Head atraumatic,EOMI, pupils reactive, face symmetric, moist mucous membranes CARDIOVASCULAR: Regular rate and rhythm without murmurs, rubs or gallops. RESPIRATORY: Breath sounds equal bilaterally, no wheezes rales or rhonchi. Speaks in full sentences without difficulty ABDOMEN: Soft, nontender. Normoactive bowel sounds all 4 quadrants. No guarding or rebound. EXTREMITIES: Normal range of motion, no clubbing or edema. Neurovascularly intact NEUROLOGICAL: Alert and oriented x4.Normal gait and speech. SKIN: Warm, dry, no laceration, no petechiae, no rashes or lesions. Course Orders Ordered: ED Orders 04/26/21 10:38 XR chest 2V Stat Vital Signs Vital signs: Vital Signs - 8 hr 04/26/21 08:10 04/26/21 08:21 04/26/21 08:30 Temperature 98.3 F Pulse Rate 90 89 86 Respiratory Rate 18 20 20 Blood Pressure 163/86 H 143/77 H Pulse Oximetry 98 98 98 04/26/21 09:00 04/26/21 09:30 04/26/21 10:10 Temperature Pulse Rate 83 78 85 Respiratory Rate 20 25 H 24 Blood Pressure 135/78 127/77 Pulse Oximetry 96 96 98 04/26/21 10:30 04/26/21 11:00 04/26/21 11:30 Temperature Pulse Rate 81 80 85 Respiratory Rate 20 20 31 H Blood Pressure 128/70 Pulse Oximetry 98 98 97 MDM - SOB/Dyspnea Lab Data Labs: Urine Dip Bedside Urine Glucose Negative Bedside Urine Bilirubin - Negative Bedside Urine Ketone - Negative Urine Specific [place] 1.015 Bedside Urine Occult Blood - Negative Bedside Urine pH 6.0 Bedside Urine Protein - Negative Bedside Urine Urobilinogen - Negative Bedside Urine Nitrite - Negative Bedside Urine Leukocytes - Negative Esterase Imaging Data Chest x-ray: Radiologist's Impression: PROCEDURE: XR CHEST 2V INDICATIONS: covid TECHNIQUE: 2 views of the chest were acquired. COMPARISON: [facility], , CHEST 2 VIEW, 12/09/2012, 14:37. FINDINGS: Surgical changes and devices: None. Lungs and pleura: There are new indistinct peripheral airspace opacities in the left mid lung. The right lung appears clear. No pleural effusions or pneumothorax. Mediastinum: Mediastinal contours are normal. Heart size is normal. Bones and chest wall: No suspicious bony abnormalities. Soft tissues appear unremarkable. IMPRESSION: 1. New peripheral indistinct opacities in the left mid lung suggestive of atypical pneumonia given clinical history. Dictated by: Anthony Montes M.D. on 04/26/2021 at 11:01 MDM Narrative Medical decision making narrative: Patient has COVID overall appears well oxygen level is 98% while on the monitor in the ED for over 2 hours. Chest x-ray does show COVID pneumonia. I discussed with her monitoring oxygen at home and when to return to the ED. at this time she certainly does not have any high risk factors and does not need admission at this time. I have explained her that this could change and to come back as needed. Discharge Plan Departure Patient Disposition: Home Clinical Impression: Pneumonia due to 2019-nCoV Instructions: DI for COVID-19 (Suspected or Confirmed ) Activity Restrictions/Additional Instructions: *You have been diagnosed with COVID *What to do: Your x-ray does show that you have some slight pneumonia. Please continue to use pulse oximeter at home. Check oxygen levels a couple of times a day. If oxygen remains low below 90% or you are having increasing difficulty breathing return to emergency department. Increase fluid intake and controlled fever. There is potential for you still to decompensate and for symptoms to worsen. *Continue to take medications as directed Tylenol 1000 mg every 6 hours if needed for fever or pain Vitamin-D 2000 units daily *Follow up with your primary care provider in 2-3 days *Return to ER if you should have increasing difficulty breathing, low oxygen, inability to tolerate fluids or any new, worsening or concerning symptoms Prescriptions: No Action amoxicillin-pot clavulanate 875-125 mg tablet 1 tab PO Q12H Qty: 14 RF: 0 Referrals: Joseph Colorado MD [Primary Care Provider] -
== END 2021-04-26 11:36 | disposition home or self-care (01) ==
PROVIDERS: Emergency Provider Emergency Medicine; PCP Internal Medicine
DX: U07.1 COVID-19 (principal); J12.82 Pneumonia due to coronavirus disease 2019
CPT/HCPCS: 71046; 81003; 99282; 99283

== ENCOUNTER 2021-05-01 06:24 | Emergency (ER) | payer OTHER, SELFPAY ==
[2021-05-01 06:45] VITALS: BP 154/82; PULSE 89; RESP 21; TEMP 36.5; O2SAT 97; BMI 28.4
--- NOTE | 2021-05-01 08:06 | ED.URI ---
HPI - URI/Sore Throat General Chief Complaint: Upper Respiratory Symptoms Stated Complaint: covid positive dehydrated weakness Time Seen by Provider: 05/01/21 07:04 Source: patient Mode of arrival: Ambulatory Limitations: no limitations History of Present Illness HPI Narrative: Patient is a 65-year-old female here on 04/26/2021 for the same presenting with increased nausea and increasing weakness. She states that her was released from the hospital but then readmitted. She has coughing spells she generally feels weak she continues to have fevers and shortness of breath. She states that she has sometimes been dizzy she feels like she is dehydrated. Related Data Previous Rx's Medication Instructions Recorded amoxicillin 875 mg-potassium 1 tab PO Q12H #14 tab 12/10/18 clavulanate 125 mg tablet ondansetron 4 mg disintegrating 4 mg PO Q8H PRN #10 tab 05/01/21 tablet Allergies Allergy/AdvReac Type Severity Reaction Status Date / Time codeine Allergy Verified 04/26/21 08:22 Review of Systems Review of Systems ROS Unobtainable: All systems reviewed & are unremarkable except as noted in HPI and below Constitutional Constitutional: Reports as per HPI, Reports body ache(s), Reports chills, Reports fatigue and Reports fever(s) ENT Ears, Nose, Mouth, and Throat: Denies neck pain and Reports sore throat Cardiovascular Cardiovascular: Denies chest pain, Denies irregular heart rhythm, Reports dyspnea and Reports dyspnea on exertion Respiratory Respiratory: Reports as per HPI, Reports chest congestion, Reports cough, Reports pain with cough, Reports dyspnea and Reports dyspnea on exertion Gastrointestinal Gastrointestinal: Denies abdominal pain, Reports nausea and Denies vomiting Musculoskeletal Musculoskeletal: Denies back pain and Denies neck pain Integumentary/Breasts Skin/Breast: Denies rash Endocrine Endocrine: Reports fatigue Patient History Medical History (Updated 05/01/21 @ 10:57 by Shea Chase DO) Fibromyalgia Lung mass No pertinent family history Ventricular tachycardia Surgical History No pertinent past surgical history Social History Smoking Status: Never smoker Smoking Status: Never smoker alcohol intake frequency: 0-2 drinks per day Substance Use Type: does not use Exam Initial Vital Signs Initial Vital Signs: Vital Signs Temperature 97.7 F 05/01/21 06:45 Pulse Rate 89 05/01/21 06:45 Respiratory Rate 21 05/01/21 06:45 Blood Pressure 154/82 H 05/01/21 06:45 Pulse Oximetry 97 05/01/21 06:45 GENERAL: Alert 65-year-old female and in no acute distress. HEENT: Head atraumatic,EOMI, pupils reactive, face symmetric] CARDIOVASCULAR: Regular rate and rhythm without murmurs, rubs or gallops. RESPIRATORY: Breath sounds equal bilaterally, no wheezes rales or rhonchi. Coughing with deep breast ABDOMEN: Soft, nontender. Normoactive bowel sounds all 4 quadrants. No guarding or rebound. EXTREMITIES: Normal range of motion, no clubbing or edema. Neurovascularly intact NEUROLOGICAL: Alert and oriented x4.Normal gait and speech. SKIN: Warm, dry, no laceration, no petechiae, no rashes or lesions. Course Orders Ordered: ED Orders 05/01/21 10:56 EKG-12 Lead Stat Discontinued Medications Sodium Chloride (Normal Saline 0.9%) 1,000 mls @ 1,000 mls/hr IV CONT KRISTOPHER Last Infusion: 05/01/21 10:39 Dose: 0 mls/hr Documented by: Admin: 05/01/21 09:10 Dose: 1,000 mls/hr Documented by: DIMITRIS Ondansetron HCl (Ondansetron 4 Mg/2 Ml Inj) 4 mg IV NOW ONE Stop: 05/01/21 10:54 Last Admin: 05/01/21 10:56 Dose: 4 mg Documented by: ESPERANZA Vital Signs Vital signs: Vital Signs - 8 hr 05/01/21 06:45 05/01/21 08:30 05/01/21 09:30 Temperature 97.7 F Pulse Rate 89 85 89 Respiratory Rate 21 18 18 Blood Pressure 154/82 H 130/79 131/79 Pulse Oximetry 97 98 98 05/01/21 10:39 Temperature Pulse Rate 96 H Respiratory Rate 18 Blood Pressure 144/75 H Pulse Oximetry 99 MDM - URI/Sore Throat Lab Data Attestation: I reviewed the patient's lab results. Result diagrams: 05/01/21 09:10 05/01/21 09:10 Labs: Lab Results 05/01/21 05/01/21 05/01/21 Range/Units 09:10 09:10 09:10 WBC 4.2 L (4.5-11.0) X10^3/uL RBC 4.47 (4.0-5.2) X10^6/uL Hgb 12.9 (12.0-16.0) g/dL Hct 38.1 (36-46) % MCV 85.2 (80-100) fL MCH 28.9 (26-34) PG MCHC 33.9 (30-36) % RDW 13.6 (11.6-14.8) % Plt Count 173 (150-400) X10^3/uL Neut % (Auto) 81.5 H (50-75) % Lymph % (Auto) 11.7 L (25-40) % [place] % (Auto) 6.5 (3-14) % Eos % (Auto) 0.0 L (2-4) % Baso % (Auto) 0.3 (0-2) % Neut # (Auto) 3400 (7783-9218) /uL Lymph # (Auto) 500 L (7750-4769) /uL [place] # (Auto) 300 (0-900) /uL Eos # (Auto) 0 (0-450) /uL Baso # (Auto) 0 (0-100) /uL D-Dimer 524 H (<230) ng/mL Sodium 134 L (137-145) mmol/L Potassium 4.1 (3.4-5.1) mmol/L Chloride 100 (98-107) mmol/L Carbon Dioxide 27 (22-32) mmol/L BUN 9 (7-17) mg/dL Creatinine 0.66 (0.52-1.04) mg/dL Estimated GFR > 60.0 (>60) mL/min BUN/Creatinine Ratio 13.6 (6-22) Glucose 117 H (80-110) mg/dL Lactate (0.7-2.1) mmol/L Calcium 8.6 (8.4-10.2) mg/dL Total Bilirubin 0.8 (0.2-1.3) mg/dL AST 49 H (14-36) IU/L ALT 46 H (<35) IU/L Alkaline Phosphatase 93 (38-126) U/L Lactate Dehydrogenase (313-618) U/L Total Creatine Kinase (30-135) U/L CK-MB (CK-2) CK-MB (CK-2) Rel Index Troponin I (0.01-0.034) ng/mL Total Protein 6.7 (6.3-8.2) g/dL Albumin 3.8 (3.5-5.0) g/dL Globulin 2.9 (1.7-4.1) g/dL Albumin/Globulin Ratio 1.3 (1.0-2.8) 05/01/21 05/01/21 Range/Units 09:10 09:10 WBC (4.5-11.0) X10^3/uL RBC (4.0-5.2) X10^6/uL Hgb (12.0-16.0) g/dL Hct (36-46) % MCV (80-100) fL MCH (26-34) PG MCHC (30-36) % RDW (11.6-14.8) % Plt Count (150-400) X10^3/uL Neut % (Auto) (50-75) % Lymph % (Auto) (25-40) % [place] % (Auto) (3-14) % Eos % (Auto) (2-4) % Baso % (Auto) (0-2) % Neut # (Auto) (3885-0382) /uL Lymph # (Auto) (1603-4316) /uL [place] # (Auto) (0-900) /uL Eos # (Auto) (0-450) /uL Baso # (Auto) (0-100) /uL D-Dimer (<230) ng/mL Sodium (137-145) mmol/L Potassium (3.4-5.1) mmol/L Chloride (98-107) mmol/L Carbon Dioxide (22-32) mmol/L BUN (7-17) mg/dL Creatinine (0.52-1.04) mg/dL Estimated GFR (>60) mL/min BUN/Creatinine Ratio (6-22) Glucose (80-110) mg/dL Lactate 0.7 (0.7-2.1) mmol/L Calcium (8.4-10.2) mg/dL Total Bilirubin (0.2-1.3) mg/dL AST (14-36) IU/L ALT (<35) IU/L Alkaline Phosphatase (38-126) U/L Lactate Dehydrogenase 831 H (313-618) U/L Total Creatine Kinase 85 (30-135) U/L CK-MB (CK-2) TNP CK-MB (CK-2) Rel Index TNP Troponin I < 0.012 (0.01-0.034) ng/mL Total Protein (6.3-8.2) g/dL Albumin (3.5-5.0) g/dL Globulin (1.7-4.1) g/dL Albumin/Globulin Ratio (1.0-2.8) Imaging Data Chest x-ray: Radiologist's Impression: PROCEDURE: XR CHEST 1V INDICATIONS: flu-like symptoms TECHNIQUE: One view of the chest was acquired. COMPARISON: [facility], , XR CHEST 2V, 04/26/2021, 10:36. [facility], , CHEST 2 VIEW, 12/09/2012, 14:37. FINDINGS: Surgical changes and devices: None. Lungs and pleura: Lungs are abnormal with increased patchy alveolar infiltration left mid and lower lung. Minimal such abnormality seen on the right.. No pleural effusions or pneumothorax. Mediastinum: Mediastinal contours appear normal. Heart size is normal. Bones and chest wall: No suspicious bony lesions. Overlying soft tissues appear unremarkable. IMPRESSION: The clinical symptomatology and the imaging findings are consistent with atypical/viral pneumonia, left greater than right. Dictated by: Greg Morrison M.D. on 05/01/2021 at 8: ECG Data Interpretation: 88 MT interval 126 QRS [address] changes or T-wave inversions, MDM Narrative Medical decision making narrative: The patient does not feel well but vitals are within normal limits she is not hypoxic. She does not meet any admission criteria. She is feeling a bit nauseous. She has elevated markers including D-dimer this is thought to be likely secondary to COVID. She is feeling better after IV fluids. I have again explained to her when to return to the emergency department. Discharge Plan Departure Patient Disposition: Home Clinical Impression: Pneumonia due to Instructions: DI for COVID-19 (Suspected or Confirmed ) Activity Restrictions/Additional Instructions: *You have been diagnosed with COVID pneumonia *What to do: Please continue to quarantine. Stay hydrated. You will continue to feel ill but should start to be on the mend. At this time you do not meet admission criteria. It is still recommended that you get vaccinated and in fact strongly encouraged. Check oxygen intermittently *Continue to take medications as directed Zofran 4 mg every 8 hours if needed for nausea or vomiting--> SENT TO [facility] Tylenol 1000 mg every 6 hours if needed for pain or fever *Follow up with your primary care provider in 2-3 days *Return to ER if you should have oxygen level below 90%, inability to tolerate fluids, or any new, worsening or concerning symptoms Prescriptions: New ondansetron 4 mg tablet,disintegrating 4 mg PO Q8H PRN (Reason: nausea and vomiting) Qty: 10 RF: 0 No Action amoxicillin-pot clavulanate 875-125 mg tablet 1 tab PO Q12H Qty: 14 RF: 0 Referrals: Joseph Colorado MD [Primary Care Provider] -
--- NOTE | 2021-05-01 08:09 | DI.RAD.S_ITS ---
PROCEDURE: XR CHEST 1V INDICATIONS: flu-like symptoms TECHNIQUE: One view of the chest was acquired. COMPARISON: [facility], , XR CHEST 2V, 04/26/2021, 10:36. [facility], , CHEST 2 VIEW, 12/09/2012, 14:37. FINDINGS: Surgical changes and devices: None. Lungs and pleura: Lungs are abnormal with increased patchy alveolar infiltration left mid and lower lung. Minimal such abnormality seen on the right.. No pleural effusions or pneumothorax. Mediastinum: Mediastinal contours appear normal. Heart size is normal. Bones and chest wall: No suspicious bony lesions. Overlying soft tissues appear unremarkable. IMPRESSION: The clinical symptomatology and the imaging findings are consistent with atypical/viral pneumonia, left greater than right. Dictated by: Greg Morrison M.D. on 05/01/2021 at 8:34 Approved by: Greg Morrison M.D. on 05/01/2021 at 8:35
[2021-05-01 08:30] VITALS: BP 130/79; PULSE 85; RESP 18; O2SAT 98
[2021-05-01] MEDS: SODIUM CHLORIDE 0.9% 1,000 ML 1000 ML IV (09:10)
[2021-05-01 09:26] LABS: Add Manual Diff / Slide Review NO; Basophils Absolute Auto 0 /uL (0-100); Basophils Percent Auto 0.3 % (0-2); Eosinophils Absolute Auto 0 /uL (0-450); Hematocrit 38.1 % (36-46); Hemoglobin 12.9 g/dL (12.0-16.0); Lymphocytes Absolute Auto 500 /uL (1100-4500); Lymphocytes Percent Auto 11.7 % (25-40); Mean Corpuscular HGB Conc 33.9 % (30-36); Mean Corpuscular Hemoglobin 28.9 PG (26-34); Mean Corpuscular Volume 85.2 fL (80-100); Monocytes Absolute Auto 300 /uL (0-900); Monocytes Percent Auto 6.5 % (3-14); Neutrophils Absolute Auto 3400 /uL (1500-7000); Neutrophils Percent Auto 81.5 % (50-75); Platelet Count 173 X10^3/uL (150-400); Red Blood Cell Count 4.47 X10^6/uL (4.0-5.2); Red Cell Distribution Width 13.6 % (11.6-14.8); White Blood Cell Count 4.2 X10^3/uL (4.5-11.0)
[2021-05-01 09:30] VITALS: BP 131/79; PULSE 89; RESP 18; O2SAT 98
[2021-05-01 09:38] LABS: D Dimer 524 ng/mL (<230)
[2021-05-01 09:48] LABS: Alanine Aminotransferase 46 IU/L (<35); Albumin 3.8 g/dL (3.5-5.0); Albumin Globulin Ratio 1.3 (1.0-2.8); Alkaline Phosphatase 93 U/L (38-126); Aspartate Aminotransferase 49 IU/L (14-36); BUN Creatinine Ratio 13.6 (6-22); Bilirubin Total 0.8 mg/dL (0.2-1.3); Blood Urea Nitrogen 9 mg/dL (7-17); Calcium 8.6 mg/dL (8.4-10.2); Carbon Dioxide 27 mmol/L (22-32); Chloride 100 mmol/L (98-107); Creatine Kinase 85 U/L (30-135); Estimated Glomerular Filt Rate > 60.0 mL/min (>60); Globulin 2.9 g/dL (1.7-4.1); Glucose 117 mg/dL (80-110); HEMOLYSIS < 15 (0-50); Lactate Dehydrogenase 831 U/L (313-618); Potassium 4.1 mmol/L (3.4-5.1); Sodium 134 mmol/L (137-145); Total Protein 6.7 g/dL (6.3-8.2)
[2021-05-01 09:51] LABS: Lactate (Lactic Acid) 0.7 mmol/L (0.7-2.1)
[2021-05-01 10:00] LABS: Troponin I < 0.012 ng/mL (0.01-0.034)
[2021-05-01 10:39] VITALS: BP 144/75; PULSE 96; RESP 18; O2SAT 99
[2021-05-01] MEDS: ONDANSETRON 4 MG/2 ML INJ IV (10:56)
== END 2021-05-01 11:11 | disposition home or self-care (01) ==
PROVIDERS: Emergency Provider Emergency Medicine; PCP Internal Medicine
DX: U07.1 COVID-19 (principal); J12.82 Pneumonia due to coronavirus disease 2019
CPT/HCPCS: 36415; 71045; 80053; 82550; 83605; 83615; 84484; 85025; 85379; 93005; 96361; 96374; 99284; J2405

== ENCOUNTER 2021-05-03 16:29 | Emergency (ER) | payer OTHER, SELFPAY ==
[2021-05-03 16:38] VITALS: PULSE 103; O2SAT 92
[2021-05-03 16:39] VITALS: BP 177/84; PULSE 104; O2SAT 95
[2021-05-03 16:45] VITALS: BP 177/84; PULSE 90; RESP 18; TEMP 36.8; O2SAT 99
[2021-05-03 17:00] VITALS: BP 162/74; PULSE 106; O2SAT 96
--- NOTE | 2021-05-03 17:29 | ED_ITS ---
HPI - URI/Sore Throat General Chief Complaint: Upper Respiratory Symptoms Stated Complaint: Covid +, clammy Time Seen by Provider: 05/03/21 16:35 Source: patient and EMS Mode of arrival: EMS Limitations: no limitations History of Present Illness HPI Narrative: 65-year-old female nonsmoker with known diagnosis of COVID-19. She has been symptomatic for about 10 days now and has had multiple visits to local facilities. She presents today with a chief complaint of occasional fever and chills and some diaphoresis. She denies any headache, sore throat or trouble breathing. She does have the occasional dry and hacking cough. She denies any nausea, vomiting or diarrhea. She denies abdominal pain, profound weakness or any skin changes such as jaundice. She had spoken with her primary care office and was instructed to present to the emergency department for evaluation. Related Data Previous Rx's Medication Instructions Recorded amoxicillin 875 mg-potassium 1 tab PO Q12H #14 tab 12/10/18 clavulanate 125 mg tablet ondansetron 4 mg disintegrating 4 mg PO Q8H PRN #10 tab 05/01/21 tablet Allergies Allergy/AdvReac Type Severity Reaction Status Date / Time codeine Allergy Verified 04/26/21 08:22 Review of Systems Review of Systems Narrative: GENERAL: see HPI HEENT: Denies sinus pain, ear pain, sore throat, difficulty swallowing, dizziness. RESPIRATORY: see HPI CARDIOVASCULAR: Denies chest pain, palpitations, orthopnea, edema, GASTROINTESTINAL: see HPI : Denies dysuria, frequency, incontinence, hematuria, urinary retention. MUSCULOSKELETAL: denies weakness, joint pain, or bony pain SKIN: Denies rash, skin lesions, or other NEUROLOGIC: Denies weakness, headache, numbness, change in speech, confusion, seizures, incoordination. PSYCHIATRIC: No concerning psychosocial issues. 12 point review of systems is negative except for those stated above Patient History Medical History Fibromyalgia Lung mass No pertinent family history Ventricular tachycardia Surgical History No pertinent past surgical history Social History Smoking Status: Never smoker Smoking Status: Never smoker alcohol intake frequency: 0-2 drinks per day Substance Use Type: does not use Exam Narrative Exam Narrative: GENERAL: [ 65] year old patient appears stated age. Well- developed patient, in mild distress. anxious, without any sign of obvious respiratory distress such as tachypnea, hypoxia, use of accessory muscles HEAD: Atraumatic. Normocephalic. EYES: Pupils equal round and reactive. Extraocular motions intact. No scleral icterus. No injection or drainage. ENT: Nose without bleeding, purulent drainage. Throat without erythema, tonsillar hypertrophy or exudate. Airway patent. NECK: Trachea midline. Non tender CARDIOVASCULAR: Regular rate and rhythm without murmurs, gallops, or rubs. RESPIRATORY: Clear to auscultation. Breath sounds equal bilaterally. No wheezes, rales, or rhonchi. GASTROINTESTINAL: Abdomen soft, non-tender, nondistended. EXTREMITIES: No edema or joint tenderness. BACK: Nontender without deformity or crepitance. No flank tenderness. NEURO: AOx3. SKIN: No rash or erythema of visible areas Initial Vital Signs Initial Vital Signs: Vital Signs Pulse Rate 103 H 05/03/21 16:38 Pulse Oximetry 92 05/03/21 16:38 Course Vital Signs Vital signs: Vital Signs - 8 hr 05/03/21 16:38 05/03/21 16:39 05/03/21 16:45 Temperature 98.2 F Pulse Rate 103 H 104 H 90 Respiratory Rate 18 Blood Pressure 177/84 H 177/84 H Pulse Oximetry 92 95 99 05/03/21 17:00 05/03/21 17:31 Temperature 98.3 F Pulse Rate 106 H Respiratory Rate Blood Pressure 162/74 H Pulse Oximetry 96 MDM - URI/Sore Throat MDM Narrative Medical decision making narrative: patient with known diagnosis of COVID pneumonia has a very reassuring physical exam and stable vital signs. She has no supplemental oxygen requirements and demonstrates no signs of respiratory distress. She is quite anxious and mentions concerns about Tylenol and how much she has been taking. We discussed the dosing that she has been using most days she is taking 2000 mg or less and has most she has had 3000 mg in a day. This is within recommended dosing and incredibly unlikely to great any toxic symptoms. Furthermore she has no abdominal pain, nausea, vomiting, change in bowel habits, jaundice or significant fatigue. We did discuss the utility of labs but surely pain that they are very unlikely to change the disposition. She has been given extensive return precautions and had questions answered to her apparent satisfaction Discharge Plan Departure Patient Disposition: Home Clinical Impression: COVID-19 Instructions: DI for COVID-19 (Suspected or Confirmed ) Activity Restrictions/Additional Instructions: *You have been diagnosed with [ COVID-19] *What to do: * per recommendations from the CDC and the [facility] Department of Health * stay home except to get medical care. Restrict activities outside your home, except for getting medical care. Do not go to work, school, or public areas. Avoid using public transportation, ride sharing, or taxis. * separate yourself from other people in your home. * call ahead before visiting your doctor * Wear a facemask * Cover your coughs and sneezes * Clean your hands often * Avoid sharing household items * Clean all high-touch services every day * Monitor your symptoms and seek prompt medical attention if your illness is worsening, particularly with difficulty in breathing. You may discontinue your isolation when: 1. You have been fever-free for at least 24 hours without the use of fever reducing medication, AND 2. Your symptoms are getting better 3. At least 10 days have passed since symptoms first appeared Individuals with laboratory confirmed COVID-19 who have not had any symptoms may discontinue home isolation when at least 10 days have passed since the date of their first COVID-19 diagnostic test and have had no subsequent illness Prescriptions: No Action ondansetron 4 mg tablet,disintegrating 4 mg PO Q8H PRN (Reason: nausea and vomiting) Qty: 10 RF: 0 amoxicillin-pot clavulanate 875-125 mg tablet 1 tab PO Q12H Qty: 14 RF: 0 Referrals: Joseph Colorado MD [Primary Care Provider] -
[2021-05-03 17:31] VITALS: TEMP 36.8
== END 2021-05-03 17:26 | disposition home or self-care (01) ==
PROVIDERS: Emergency Provider Emergency Medicine; PCP Internal Medicine
DX: U07.1 COVID-19 (principal)
CPT/HCPCS: 99281

== ENCOUNTER → 2022-05-28 09:26 | Outpatient (CLI) | payer OTHER, SELFPAY ==
[2022-05-28 10:27] LABS: Hematocrit 39.1 % (36-46); Hemoglobin 13.5 g/dL (12.0-16.0); Mean Corpuscular HGB Conc 34.5 % (30-36); Mean Corpuscular Hemoglobin 29.6 PG (26-34); Mean Corpuscular Volume 85.7 fL (80-100); Platelet Count 240 X10^3/uL (150-400); Red Blood Cell Count 4.57 X10^6/uL (4.0-5.2); Red Cell Distribution Width 13.8 % (11.6-14.8); White Blood Cell Count 4.8 X10^3/uL (4.5-11.0)
[2022-05-28 10:45] LABS: Alanine Aminotransferase 15 IU/L (<35); Albumin 4.1 g/dL (3.5-5.0); Albumin Globulin Ratio 1.8 (1.0-2.8); Alkaline Phosphatase 89 U/L (38-126); Aspartate Aminotransferase 20 IU/L (14-36); Bilirubin Total 0.9 mg/dL (0.2-1.3); Blood Urea Nitrogen 17 mg/dL (7-17); Calcium 8.7 mg/dL (8.4-10.2); Carbon Dioxide 28 mmol/L (22-32); Chloride 105 mmol/L (98-107); Cholesterol 220 mg/dL (140-199); Estimated Glomerular Filt Rate > 60 mL/min (>60); Globulin 2.3 g/dL (1.7-4.1); Glucose 91 mg/dL (80-110); HDL Cholesterol 74 mg/dL (40-60); HEMOLYSIS < 15 (0-50); LDL Cholesterol Calculated 129 mg/dL (<100); Potassium 4.5 mmol/L (3.4-5.1); Sodium 138 mmol/L (137-145); Total Protein 6.4 g/dL (6.3-8.2); Triglycerides 86 mg/dL (35-150)
[2022-05-28 11:13] LABS: TSH w/ Reflex to FT4 2.36 uIU/mL (0.47-4.68)
== END ==
PROVIDERS: PCP Internal Medicine; Referring Provider Internal Medicine; Visit Provider Internal Medicine
DX: E78.2 Mixed hyperlipidemia (principal); I47.2 Ventricular tachycardia
CPT/HCPCS: 36415; 80053; 80061; 84443; 85027

== ENCOUNTER → 2022-08-11 14:57 | Outpatient (CLI) | payer OTHER, SELFPAY ==
--- NOTE | 2022-08-11 15:00 | DI.RAD.S_ITS ---
PROCEDURE: XR CHEST 2V INDICATIONS: dyspnea, lung nodule TECHNIQUE: 2 views of the chest were acquired. COMPARISON: [facility], CR, XR CHEST 1V, 05/01/2021, 8:13. FINDINGS: Surgical changes and devices: None. Lungs and pleura: Lungs are clear. No pleural effusions or pneumothorax. Mediastinum: Mediastinal contours are normal. Heart size is normal. Bones and chest wall: No suspicious bony abnormalities. Soft tissues appear unremarkable. IMPRESSION: No acute cardiopulmonary pathology. Patient's known 1.6 cm medial right lower lobe lung nodule is not definitely seen on this CT study. Consider repeat CT for further evaluation if indicated. Dictated by: Marbin Harris M.D. on 08/11/2022 at 16:07 Approved by: Marbin Harris M.D. on 08/11/2022 at 16:08
== END ==
PROVIDERS: PCP Internal Medicine; Referring Provider Internal Medicine; Visit Provider Internal Medicine
DX: R06.00 Dyspnea, unspecified (principal); R91.1 Solitary pulmonary nodule; Z86.16 Personal history of COVID-19
CPT/HCPCS: 71046

== ENCOUNTER → 2022-09-02 10:44 | Outpatient (CLI) | payer OTHER, SELFPAY ==
[2022-09-02 11:26] LABS: COVID19 -Nasal RAPID Negative (Negative)
== END ==
PROVIDERS: PCP Internal Medicine; Referring Provider Internal Medicine; Visit Provider Internal Medicine
DX: Z20.822 Contact with and (suspected) exposure to COVID-19 (principal)
CPT/HCPCS: 87635; C9803

== ENCOUNTER → 2022-09-03 08:18 | Outpatient (CLI) | payer OTHER, SELFPAY ==
--- NOTE | 2022-09-10 10:35 | PM.PFT.1 ---
Pulmonary Function Test Referral & Results Date Patient Seen: 10/03/22 Requesting provider: Joseph Colorado Results: The spirometry demonstrates an FVC of 3.36 L which is 85% of predicted. The FEV1 was measured at 2.62 L which is 87% of predicted. The FEV1/FVC ratio was 78 which is 101% of predicted. Following the administration of bronchodilator there was 34% improvement in FEF 25-75%. Lung volumes show an SVC of 3.50 L which is 98% of predicted. The diffusing capacity was measured at 20.0 which is 61% of predicted. No hemoglobin value was provided, so no correction for potential anemia could be made, if appropriate. The maximum voluntary ventilation was normal Interpretation: This study demonstrates probably normal spirometry. There is a minimal reduction FEV1 but FEV1/FVC ratio is preserved however this might indicate some minor degree of obstructive lung disease. There is also some minimal evidence of benefit following bronchodilator in small airway flow based on improvement in the FEF 25-75% as above. However shape of flow volume loop does not support the presence of obstructive lung disease. There is a mild to moderate reduction in diffusing capacity suggesting disease at the capillary alveolar level Clinical correlation suggested
== END ==
PROVIDERS: PCP Internal Medicine; Referring Provider Internal Medicine; Visit Provider Internal Medicine
DX: R06.00 Dyspnea, unspecified (principal); Z86.16 Personal history of COVID-19; J98.8 Other specified respiratory disorders
CPT/HCPCS: 94060; 94726; 94729

== ENCOUNTER → 2022-12-08 09:51 | Outpatient (CLI) | payer OTHER, SELFPAY ==
--- NOTE | 2022-12-08 09:51 | DI.MG.S_ITS ---
BILATERAL DIGITAL SCREENING MAMMOGRAM 3D/2D WITH CAD: 12/08/2022 CLINICAL: Routine screening. Comparison is made to exam dated: 03/08/2018 mammogram - [facility]. There are scattered areas of fibroglandular density in both breasts (category b / 25%-50% glandular tissue). Current study was also evaluated with a Computer Aided Detection (CAD) system. There is a possible focal asymmetry in the left breast at 12 o'clock posterior depth. This is more prominent. No other significant masses, calcifications, or other findings are seen in either breast. IMPRESSION: INCOMPLETE: NEEDS ADDITIONAL IMAGING EVALUATION The possible focal asymmetry in the left breast is indeterminate. Additional views with possible ultrasound are recommended. Based on the Tyrer Cuzick model (a risk assessment model) the patient's lifetime risk is 6.0% and her 10 year risk is 2.9%. According to the ACR, ACS, and NCCN guidelines, an annual breast MRI exam along with mammogram is recommended if the patient's lifetime risk is 20% or greater. This exam was interpreted at Station ID: [id number]. NOTE: For mammograms, a report in lay terms will be sent to the patient. Approximately 15% of breast malignancies will not be visualized mammographically. In the management of a palpable breast mass, a negative mammogram must not discourage biopsy of a clinically suspicious lesion. Electronically Signed By: Adiel gomes/madan:12/08/2022 14:35:46 letter sent: Additional Imaging Needed ACR BI-RADS Category 0: Incomplete 3340F
== END ==
PROVIDERS: PCP Internal Medicine; Referring Provider Internal Medicine; Visit Provider Internal Medicine
DX: Z12.31 Encounter for screening mammogram for malignant neoplasm of breast (principal)
CPT/HCPCS: 77063; 77067

== ENCOUNTER 2022-12-11 08:30 | Outpatient (RCR) | payer OTHER, SELFPAY | END 2022-12-11 10:30 | LOC: PUL 08:30 | PROVIDERS: PCP Internal Medicine; Referring Provider Internal Medicine; Visit Provider Internal Medicine | DX: R06.00 Dyspnea, unspecified (principal); Z86.16 Personal history of COVID-19 | CPT/HCPCS: 94625; 94626 ==

== ENCOUNTER → 2022-12-31 09:55 | Outpatient (CLI) | payer OTHER, SELFPAY ==
--- NOTE | 2022-12-31 | DI.MG.S_ITS ---
UNILATERAL LEFT DIGITAL DIAGNOSTIC MAMMOGRAM 3D/2D WITH ADDITIONAL VIEWS: 12/31/2022 CLINICAL: Additional evaluation requested from prior study. Comparison is made to exams dated: 12/08/2022 mammogram and 03/08/2018 mammogram - [facility]. There are scattered areas of fibroglandular density in the left breast (category b / 25%-50% glandular tissue). There is a possible focal asymmetry in the left breast at 12 o'clock posterior depth. This is less prominent. No other significant masses or calcifications are seen in the breast. IMPRESSION: INCOMPLETE: NEEDS ADDITIONAL IMAGING EVALUATION The possible focal asymmetry in the left breast is indeterminate. An ultrasound is recommended. Based on the Tyrer Cuzick model (a risk assessment model) the patient's lifetime risk is 6.0% and her 10 year risk is 2.9%. According to the ACR, ACS, and NCCN guidelines, an annual breast MRI exam along with mammogram is recommended if the patient's lifetime risk is 20% or greater. This exam was interpreted at Station ID: [id number]. NOTE: For mammograms, a report in lay terms will be sent to the patient. Approximately 15% of breast malignancies will not be visualized mammographically. In the management of a palpable breast mass, a negative mammogram must not discourage biopsy of a clinically suspicious lesion. Electronically Signed By: Albert Palomino M.D. lc/:12/31/2022 11:25:01 ACR BI-RADS Category 0: Incomplete 3340F
--- NOTE | 2022-12-31 | DI.US.S_ITS ---
PROCEDURE: US BREAST LT LIMITED COMPARISON: None. INDICATIONS: ABNORMAL MAMMOGRAM FINDINGS: IMPRESSION: Dictated by: Albert Palomino M.D. on 12/31/2022 at 11:25 Approved by: Albert Palomino M.D. on 12/31/2022 at 11:25
--- NOTE | 2022-12-31 11:18 | DI.US.S_ITS ---
Patient Name: RUFINA MARMOLEJO date: 1955 Sex: F Attending Physician: Jenny Indications: Date: 01/02/2023 10:44 At the request of: SULTANA ALCANTARA Procedure: US breast LT limited LIMITED ULTRASOUND OF LEFT BREAST: 12/31/2022 CLINICAL: Patient returns today to evaluate a focal asymmetry in the left breast. Comparison is made to exams dated: 12/31/2022 mammogram, 12/08/2022 mammogram, and 03/08/2018 mammogram - [facility]. Real-time ultrasound of the left breast was performed. Acuña scale images of the real-time examination were reviewed. No significant abnormalities were seen sonographically in the left breast. IMPRESSION: NEGATIVE There is no sonographic evidence of malignancy. There are no abnormalities seen in the left breast to correspond with the mammography finding at 12 o'clock which likely represent normal fibroglandular tissue. 10:00 and 11:00 were also scanned and no sonographic findings were visualized. Return to annual mammogram screening schedule is recommended. This exam was interpreted at Station ID: [id number]. Electronically Signed By: Albert Palomino M.D. lc/:01/02/2023 10:44:44 letter sent: Normal Exam Ultrasound BI-RADS: 1 Negative
== END ==
PROVIDERS: PCP Internal Medicine; Referring Provider Nurse Practitioner Family; Visit Provider Nurse Practitioner Family
DX: R92.8 Other abnormal and inconclusive findings on diagnostic imaging of breast (principal)
CPT/HCPCS: 76642; 77065; G0279

== ENCOUNTER → 2023-01-09 14:58 | Outpatient (CLI) | payer OTHER, SELFPAY ==
[2023-01-09 15:22] LABS: Hematocrit 40.4 % (36-46); Hemoglobin 13.8 g/dL (12.0-16.0); Mean Corpuscular HGB Conc 34.3 % (30-36); Mean Corpuscular Hemoglobin 29.4 PG (26-34); Mean Corpuscular Volume 85.6 fL (80-100); Platelet Count 276 X10^3/uL (150-400); Red Blood Cell Count 4.71 X10^6/uL (4.0-5.2); Red Cell Distribution Width 14.4 % (11.6-14.8); White Blood Cell Count 7.1 X10^3/uL (4.5-11.0)
[2023-01-09 16:15] LABS: BUN Creatinine Ratio 20.5 (6-22); Blood Urea Nitrogen 18 mg/dL (7-17); Calcium 8.8 mg/dL (8.4-10.2); Carbon Dioxide 27 mmol/L (22-32); Chloride 104 mmol/L (98-107); Cholesterol 244 mg/dL (140-199); Estimated Glomerular Filt Rate > 60 mL/min (>60); Glucose 99 mg/dL (80-110); HDL Cholesterol 95 mg/dL (40-60); HEMOLYSIS < 15 (0-50); LDL Cholesterol Calculated 131 mg/dL (<100); Potassium 3.8 mmol/L (3.4-5.1); Sodium 140 mmol/L (137-145); Triglycerides 90 mg/dL (35-150)
== END ==
PROVIDERS: PCP Internal Medicine; Referring Provider Internal Medicine; Visit Provider Internal Medicine
DX: E78.2 Mixed hyperlipidemia (principal); U09.9 Post COVID-19 condition, unspecified
CPT/HCPCS: 36415; 80048; 80061; 85027

== ENCOUNTER → 2023-01-17 10:51 | Outpatient (CLI) | payer OTHER, SELFPAY ==
--- NOTE | 2023-02-10 07:48 | PM.PFT.1 ---
Pulmonary Function Test Referral & Results Date Patient Seen: 01/17/23 Results: The spirometry demonstrates an FVC of 3.39 L which is 87% of predicted. The FEV1 was measured at 2.66 L which is 89% of predicted. The FEV1/FVC ratio was 78 which is 101% of predicted. Following the administration of bronchodilator there was a 30% improvement in FEF 25-75%. Lung volumes show an SVC of 3.46 L which is 97% of predicted. The diffusing capacity was measured at 21.53 which is 67% of predicted. Interpretation: This study demonstrates probably normal spirometry. There is some limited evidence of benefit in small airway flow after bronchodilator administration as above based on improvement in FEF 25-75% There is a moderate reduction diffusing capacity suggesting disease at the capillary alveolar level Clinical correlation suggested
== END ==
PROVIDERS: PCP Internal Medicine; Referring Provider Internal Medicine; Visit Provider Internal Medicine
DX: J98.8 Other specified respiratory disorders (principal); Z86.16 Personal history of COVID-19
CPT/HCPCS: 94060; 94726; 94729

== ENCOUNTER → 2023-05-12 10:15 | Outpatient (CLI) | payer OTHER, SELFPAY ==
--- NOTE | 2023-05-12 10:16 | DI.US.S_ITS ---
PROCEDURE: US PELVIC COMPLETE INDICATIONS: Pelvic pain with intercourse TECHNIQUE: Real-time scanning was performed of the pelvic organs, with image documentation. Additional endovaginal scanning was necessary due to incomplete visualization of the adnexal and endometrial structures by transabdominal scanning. COMPARISON: None. FINDINGS: Uterus: Uterus is anteverted and normal in size at 6.0 x 3.3 x 5.5 cm. The myometrium is homogeneous. The endometrium measures 5 mm combined thickness. Ovaries: Not visualized due to overlying bowel gas. Other: No pathologic free abdominal or pelvic fluid. IMPRESSION: No acute abnormality. Endometrial thickness measures 5 mm, within normal limits in the absence of postmenopausal bleeding. We strive to produce accurate, complete, and clear reports of imaging services. To assist us in improving patient care, this report was composed using standard report templates and voice recognition software. Therefore, it may contain abnormal punctuation, insertions and/or omissions. Occasional wrong-word or sound-alike substitutions may occur. Though we review the report and make efforts to correct it, we do recommend that the report be read carefully in proper context to recognize any text inaccuracies. Dictated by: Gabriele Hodges M.D. on 05/14/2023 at 11:19 Approved by: Gabriele Hodges M.D. on 05/14/2023 at 11:20
== END ==
PROVIDERS: PCP Internal Medicine; Referring Provider Physician Assistant Medical; Visit Provider Physician Assistant Medical
DX: N94.12 Deep dyspareunia (principal); R10.2 Pelvic and perineal pain
CPT/HCPCS: 76830; 76856